=== PATIENT | female | born 1950 | race Caucasian/White ===

== ENCOUNTER 2019-04-07 18:49 | Emergency (ER) | payer MEDICARE, OTHER ==
[2019-04-07 19:07] VITALS: BP 127/60
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
[2019-04-07] MEDS: AMOXICILLIN/POT 875/125 1 EACH PO ONE (19:35)
== END 2019-04-07 19:48 | disposition home or self-care (01) ==
LOC: ED 18:49
DX: H66.92 Otitis media, unspecified, left ear (principal); F17.210 Nicotine dependence, cigarettes, uncomplicated
CPT/HCPCS: 99283; 99284